=== PATIENT | male | born 2000 | race African-American/Black ===

== ENCOUNTER 2023-09-12 13:04 | Inpatient (IN) ==
--- NOTE | 2023-09-12 13:17 | ED Triage Note ---
Date of Service September 12, 2023 Provider in Triage Author: Kelsie Ferrell History of Present Illness This patient was briefly evaluated while in triage. An abbreviated physical exam was performed. This patient is a 22-year-old Male who presents to the ED for evaluation of allergic reaction. Developed hives, facial swelling, and difficulty breathing at 11a. Unknown trigger and does not have any known allergies. Took Benadryl. States he then had a syncopal episode while attempting to walk to his car. Reports history of similar episodes but this is lasting longer. Physical Exam Constitutional: alert and oriented x3. no acute distress. HEENT: normocephalic, atraumatic. normal conjunctiva.PERRLA. EOM's grossly intact. Respiratory: normal respiratory effort, no accessory muscle use. Cardiovascular: regular rate and rhythm. MSK: moves all 4 extremities spontaneously Psych:appropriate mood and affect. Initial orders for labs and / or imaging were placed and patient was placed in the waiting area until a bed is available. Please see further documentation for the full ED course.
[2023-09-12 14:16] LABS: Albumin Level 4.8 gm/dl (3.4-5.0); Bilirubin,Total 1.2 mg/dl (0.2-1.0); Calcium 10.1 mg/dl (8.6-10.3); Potassium 4.3 mmol/L (3.5-5.1)
[2023-09-12 14:22] LABS: Albumin Globulin Ratio 1.5 (0.9-2); BUN Creatinine Ratio 12.9 (10-20); Creatinine Clr Calc Pharmacy 63.7 ml/min; Est GFR (Non-African American) 72.4 ml/min; Globulin 3.1 gm/dl (2.5-4.0); Total Protein 7.9 gm/dl (6.0-8.3)
[2023-09-12 14:43] LABS: Basophils # (auto) 0.01 K/uL (0.00-0.20); Basophils % (auto) 0.2 %; Eosinophils # (auto) 0.03 K/uL (0.00-0.50); Eosinophils % (auto) 0.6 %; Hematocrit (blood only) 51.5 % (42.0-52.0); Hemoglobin 17.6 g/dl (14.0-18.0); Immature Granulocytes # (auto) 0.01 K/uL (0.01-0.20); Immature Granulocytes % (auto) 0.2 %; Lymphocytes # (auto) 1.92 K/uL (1.20-3.40); Mean Corpuscular Hgb Conc 34.2 g/dL (32.0-36.0); Mean Corpuscular Volume 87.9 fL (80.0-100.0); Mean Platelet Volume 11.4 fL (9.4-12.4); Monocytes # (auto) 0.27 K/uL (0.11-0.59); Monocytes % (auto) 5.5 %; Neutrophils # (auto) 2.68 K/uL (1.40-6.50); Neutrophils % (auto) 54.5 %; Platelet Count 279 K/uL (130-400); RDW Coefficient of Variation 12.2 % (11.5-14.5); RDW Standard Deviation 39.4 fL (36.4-46.3); Red Blood Count 5.86 M/uL (4.70-6.10); White Blood Count 4.92 K/ul (4.8-10.8)
[2023-09-12] MEDS ORDERED: SODIUM CHLORIDE 0.9% 1,000 ML IV ONE (14:44)
[2023-09-12 14:55] LABS: Magnesium 1.9 mg/dl (1.7-2.4)
[2023-09-12 15:16] LABS: Thyroid Stimulating Hormone 1.854 uIu/ml (0.300-4.500)
[2023-09-12 15:30] LABS: Troponin I High Sensitivity 62.8 pg/ml (0-20)
--- NOTE | 2023-09-12 16:03 | CT Scan Report ---
HEAD CT NONCONTRAST CT DOSE: 625.8 mGy.cm HISTORY: fall, head injury TECHNIQUE: Multiaxial CT images of the head were performed without the use of intravenous contrast. A utomated exposure control was utilized for this study. A dose lowering technique was utilized adheri ng to the principles of ALARA. Comparison: None. Findings: Partial opacification of the right sphenoid sinus. The remaining paranasal sinuses and mast oid air cells are clear. The calvarium and skull base are intact. The ventricles and sulci are within normal limits. There is no mass, hematoma, midline shift, or acute infarct. Impression: No acute intracranial abnormality. ACT 112: Negative or not required by law. Electronically signed by: Dayne Wei M.D. 09/12/2023 4:02 PM
--- NOTE | 2023-09-12 16:24 | Electrocardiogram Report ---
Test Reason : Blood Pressure : / mmHG Vent. Rate : 075 BPM Atrial Rate : 075 BPM P-R Int : 136 ms QRS Dur : 092 ms QT Int : 372 ms P-R-T Axes : 085 100 022 degrees QTc Int : 415 ms Normal sinus rhythm with sinus arrhythmia Right atrial enlargement Rightward axis Incomplete right bundle branch block Borderline ECG No previous ECGs available Confirmed by Abdelrahman Hernández ([id number]) on 09/12/2023 4:24:09 PM Referred By: Confirmed By:Abdelrahman Hernández
[2023-09-12 16:44] LABS: D Dimer 4870 ug/L FEU (0-500)
[2023-09-12] MEDS ORDERED: OPTIRAY 320 125ml IV ONE (17:15)
--- NOTE | 2023-09-12 17:34 | CT Scan Report ---
CT ANGIOGRAM OF THE CHEST CLINICAL HISTORY: Atypical chest pain. COMPARISON STUDY: No priors. TECHNIQUE: Following the IV administration of 118 cc of Optiray 320, CT angiogram of the chest was pe rformed from the upper abdomen to the thoracic inlet utilizing the pulmonary embolus protocol. Images are reviewed in the axial, sagittal, and coronal planes. 3-D MIPS images are created and assessed. I V contrast was administered without complication. A dose lowering technique was utilized adhering to the principles of ALARA. CT DOSE: 464.62 mGy.cm FINDINGS: Thyroid: Imaged portions of the thyroid gland are normal in size and attenuation. Thoracic aorta: The thoracic aorta is normal in caliber and demonstrates standard 3-vessel arch anato my. No dissection is seen. Pulmonary vasculature: The pulmonary trunk is normal in caliber. There are no filling defects identif ied in main, lobar, or segmental pulmonary branches to suggest pulmonary embolus. Heart: The heart is normal in size and without pericardial effusion. Lungs and pleural spaces: The lungs and pleural spaces are clear. The trachea and central airways are patent. Mediastinum: There is no mediastinal lymphadenopathy. Venessa: Clear. Axillae: There is no axillary lymphadenopathy. Upper abdomen: Partially visualized upper abdominal viscera is within normal limits. Skeletal structures: No lytic or blastic bony lesions are seen. IMPRESSION: 1. There is no evidence of pulmonary embolus in the main, lobar, or segmental pulmonary arteries. 2. The lungs are clear. ACT 112: Negative or not required by law. Electronically signed by: Kaushik Green M.D. 09/12/2023 5:32 PM
--- NOTE | 2023-09-12 18:37 | History & Physical Report ---
Date of Service September 12, 2023 Assessment & Plan (1) Syncope: Plan: This is a 22 y/o male with history of asthma, ADHD, and prior allergic reactions who presented to the ED today after a brief syncopal event. This event occurred while he was on his way to the car to come to the ED for evaluation of an allergic reaction. These episodic allergic reactions are a chronic issue since high school - no clear etiology identified. The hives and pruritus have since resolved. Work-up in the ED showed an elevated D-dimer so CTA chest PE protocol was ordered and was negative. Initial troponin was elevated, EKG abnormal including incomplete RBBB; no previous ekg for comparsim. Since etiology of syncope unclear and initial cardiac work-up was abnormal, pt was referred for admission. Additionally, on labs, pt was noted to have an elevated AST at 134 and Total Bili at 1.2. Need to evaluate for rhabdomyolysis in view of recent workouts at the gym and abnormal labs. - Admit to PCU - Trend troponin - Check ECHO due to unexplained syncope, abnl EKG - Consult cardiology for recommendations on any additional work-up - Check CK due to concern for rhabdo, repeat LFTs and CK in the AM - IVF hydration with LR at 125 cc/hr - Repeat EKG in the AM (2) Allergic reaction: Plan: - Will order prn Benadryl for any recurrent symptoms overnight - Add scheduled cetirizine 10 mg BID (3) Asthma: Plan: Chronic, stable - continue outpatient regimen of Flovent/albuterol prn (4) ADHD: Plan: Chronic, stable - continue Concerta Plan Pt seen and reviewed with collaborating physician, Dr. Franklin. Plan of care discussed and as outlined above. Code Status: Full code DVT Prophylaxis: SCDs Gladys Rivera PA-C History of Present Illness Chief Complaint: allergic reaction, passed out Primary Care Provider: NO PCP This is a 22 y/o male with history of asthma, ADHD, and prior allergic reactions who presented to the ED today after a syncopal event. Pt reports that he originally started with an allergic reaction today around 11 am today, which he describes as hives and pruritus - took Benadryl and tried to go to class but the hives were getting worse so his friend told him that he should be evaluated. He was walking to his friend's car to drive to the hospital when his vision became blurry, he developed dizziness then thinks that he passed out for around ten seconds. He did hit his head on a pole when he fell forward but did not fall to the ground. He has not had a syncopal event previously. He has had issues with sporadic allergic reactions since senior year of high school (currently a myra in college). He typically uses prn Benadryl with improvement in 30-60 minutes so today's reaction was unusual for him. He may go months without an allergic episode or have several in a short time. His last allergic episode was yesterday. No dysphagia with today's allergic reaction but he did have some shortness of breath that he attributes to his asthma - relief with inhaler, doesn't think related to the hives. He saw cadastral surveyor but didn't have full testin g and isn't sure why. No specific cause for these reactions have been identified. He notes working out at the gym yesterday but denies extreme muscle aches or fatigue, chest pain, dark urine. Allergies Allergy/AdvReac Type Severity Reaction Status Date / Time No Known Allergies Allergy Unverified 09/12/23 18:01 Home Medications Medication Instructions Recorded Confirmed Type albuterol sulfate 90 mcg/actuation 1 inh inhalation QID PRN 09/12/23 09/12/23 Hi story aerosol inhaler WHEEZING/sHORTNESS fluticasone propionate 110 2 puff inhalation BID 09/12/23 09/12/23 History mcg/actuation HFA aerosol inhaler methylphenidate HCl 27 mg 27 mg PO QAM 09/12/23 09/12/23 History tablet,extended release 24 hr (Concerta) Past Med/Surg History Medical History (Updated 09/12/23 @ 19:17 by Kathy Rivera PA-C) ADHD Asthma Surgical History (Updated 09/12/23 @ 19:15 by Kathy Rivera PA-C) No pertinent past surgical history Family History (Updated 09/12/23 @ 19:15 by Kathy Rivera PA-C) Other Family history non-contributory Social History Smoking Status: Never smoker Preferred Language: Slovenian Feels Safe at Home: Yes Review of Systems Review of Systems: All systems reviewed & are unremarkable except as noted in HPI & below Constitutional: no fever and no chills Eyes: as per Subjective / HPI Ear, Nose, Mouth, Throat: no sore throat and no dysphagia Respiratory: as per Subjective / HPI Cardiovascular: + lightheadedness and + syncope; no ches t pain, no palpitations and no edema Gastrointestinal: no abdominal pain, no nausea and no vomiting Musculoskeletal: no back pain and no neck pain Integumentary: + pruritus and + urticaria Neurologic: no seizure-like activity and no confusion Physical Exam Physical Exam: For details of the physical exam, please see the physician addendum. Results & Data Results & Data Vital Signs (Past 12 Hours) Vital Signs Temp Pulse Pulse Resp BP BP Pulse Ox 09/12/23 18:29 36.7 C 72 14 125/75 99 09/12/23 17:30 137/79 09/12/23 17:30 73 14 99 09/12/23 17:26 78 19 100 09/12/23 17:26 132/68 09/12/23 17:16 146/67 H 09/12/23 17:16 84 22 98 09/12/23 17:00 123/63 09/12/23 17:00 81 21 98 09/12/23 16:31 69 17 97 09/12/23 16:31 136/68 09/12/23 16:30 63 15 100 09/12/23 16:23 71 20 131/67 98 09/12/23 16:23 65 09/12/23 13:13 36.4 C L 87 19 105/77 94 09/12/23 13:05 99 O2 Del Method 09/12/23 18:29 Room Air 09/12/23 17:30 09/12/23 17:30 09/12/23 17:26 09/12/23 17:26 09/12/23 17:16 09/12/23 17:16 09/12/23 17:00 09/12/23 17:00 09/12/23 16:31 09/12/23 16:31 09/12/23 16:30 09/12/23 16:23 09/12/23 16:23 09/12/23 13:13 Room Air 09/12/23 13:05 Room Air Laboratory Results Laboratory Results - last 24 hr 09/12/23 09/12/23 13:48 Unknown WBC 4.92 RBC 5.86 Hgb 17.6 Hct 51.5 MCV 87.9 MCH 30.0 MCHC 34.2 RDW Std Deviation 39.4 RDW Coeff of Dylan 12.2 Plt Count 279 MPV 11.4 Immature Gran % (Auto) 0.2 Neut % (Auto) 54.5 Lymph % (Auto) 39.0 Trimble % (Auto) 5.5 Eos % (Auto) 0.6 Baso % (Auto) 0.2 Neut # (Auto) 2.68 Lymph # (Auto) 1.92 Trimble # (Auto) 0.27 Eos # (Auto) 0.03 Baso # (Auto) 0.01 Immature Gran # (Auto) 0.01 D-Dimer 4870 H* Sodium 139 Potassium 4.3 Chloride 103 Carbon Dioxide 30 Anion Gap 6 BUN 18 Creatinine 1.39 Est Cr Clr Drug Dosing 63.7 Est GFR ( Amer) 84.0 Est GFR (Non-Af Amer) 72.4 BUN/Creatinine Ratio 12.9 Glucose 123 H Calcium 10.1 Magnesium 1.9 Total Bilirubin 1.2 H AST 134 H ALT 40 Alkaline Phosphatase 57 Troponin I High Sens 62.8 H* Total Protein 7.9 Albumin 4.8 Globulin 3.1 Albumin/Globulin Ratio 1.5 TSH 1.854 Adenovirus (PCR) Not Detected B. pertussis DNA (PCR) Not Detected B.parapertussis DNA PCR Not Detected Lyme Disease IgG Ab Negative Lyme Disease IgM Ab Negative C. pneumoniae DNA (PCR) Not Detected Coronavirus OC43 (PCR) Not Detected Coronavirus HKU1 (PCR) Not Detected Coronavirus 229E (PCR) Not Detected SARS-CoV-2 (PCR) Not Detected Coronavirus NL63 (PCR) Not Detected Human Metapneumovir PCR Not Detected Influenza Type A (PCR) Not Detected Influenza Type B (PCR) Not Detected M. pneumoniae (PCR) Not Detected Parainfluenza 1 (PCR) Not Detected Parainfluenza 2 (PCR) Not Detected Parainfluenza 3 (PCR) Not Detected Parainfluenza 4 (PCR) Not Detected RSV (PCR) Not Detected Entero/Rhino (PCR) Not Detected Diagnostic Findings Head CT 09/12/23 14:[address] DOSE: 625.8 mGy.cm HISTORY: fall, head injury TECHNIQUE: Multiaxial CT images of the head were performed without the use of intravenous contrast. Automated exposure control was utilized for this study. A dose lowering technique was utilized adhering to the principles of ALARA. Comparison: None. Findings: Partial opacification of the right sphenoid sinus. The remaining paranasal sinuses and mastoid air cells are clear. The calvarium and skull base are intact. The ventricles and sulci are within normal limits. There is no mass, hematoma, midline shift, or acute infarct. Impression: No acute intracranial abnormality. ACT 112: Negative or not required by law. Electronically signed by: Dayne Wei M.D. 09/12/2023 4:02 PM Chest CTA 09/12/23 16:44 CT ANGIOGRAM OF THE CHEST CLINICAL HISTORY: Atypical chest pain. COMPARISON STUDY: No priors. TECHNIQUE: Following the IV administration of 118 cc of Optiray 320, CT angiogram of the chest was performed from the upper abdomen to the thoracic inlet utilizing the pulmonary embolus protocol. Images are reviewed in the axial, sagittal, and coronal planes. 3-D MIPS images are created and assessed. IV contrast was administered without complication. A dose lowering technique was utilized adhering to the principles of ALARA. CT DOSE: 464.62 mGy.cm FINDINGS: Thyroid: Imaged portions of the thyroid gland are normal in size and attenuation. Thoracic aorta: The thoracic aorta is normal in caliber and demonstrates standard 3-vessel arch anatomy. No dissection is seen. Pulmonary vasculature: The pulmonary trunk is normal in caliber. There are no filling defects identified in main, lobar, or segmental pulmonary branches to suggest pulmonary embolus. Heart: The heart is normal in size and without pericardial effusion. Lungs and pleural spaces: The lungs and pleural spaces are clear. The trachea and central airways are patent. Mediastinum: There is no mediastinal lymphadenopathy. Venessa: Clear. Axillae: There is no axillary lymphadenopathy. Upper abdomen: Partially visualized upper abdominal viscera is within normal limits. Skeletal structures: No lytic or blastic bony lesions are seen. IMPRESSION: 1. There is no evidence of pulmonary embolus in the main, lobar, or segmental pulmonary arteries. 2. The lungs are clear. ACT 112: Negative or not required by law. Electronically signed by: Kaushik Green M.D. 09/12/2023 5:32 PM Medications Administered Discontinued Medications Sodium Chloride (Nss) 1,000 mls @ 999 mls/hr IV .Q1H1M ONE Stop: 09/12/23 15:44 Last Infusion: 09/12/23 18:01 Dose: Infused Documented By: Admin: 09/12/23 14:52 Dose: 999 mls/hr Documented By: LINDY Ioversol (Optiray 320 125ml) 118 ml IV ONCE ONE Stop: 09/12/23 17:16 Last Admin: 09/12/23 17:16 Dose: 118 ml Documented By: ESEQUIEL Supervising Physician Co-Signing Physician Notes Patient is a 22-year-old male who presented to the hospital after a brief syncopal episode. He reports multiple episodes of allergic urticaria rash for several years. He reports that he he had a allergic reaction yesterday as well. It usually subsides with Benadryl. Patient reports 10 seconds of syncopal episode; denies falling down. He reported dizziness prior to the episode. He denies headache, visual changes, weakness/numbness of any body part, cough, shortness of breath, abdominal pain or urinary symptoms. He reports working out after a long break on Saturday/Saturday. On presentation to the ED, patient was normotensive, saturating well in room air. Lab work was remarkable for elevated D-dimer. CTA chest was done which ruled out PE. He was also found to have elevated AST, elevated high-sensitivity troponin On physical examination; Constitutional: Alert oriented x 3; not in distress. Respiratory: normal respiratory effort, lungs clear to auscultation, no wheeze, rales, rhonchi. Normal insp/exp effort, no accessory muscle use Cardiovascular: RRR, no murmur, no edema Vessels: no JVD or carotid bruit Chest: normal inspection of chest Abdomen: normal bowel sounds, soft, nontender, no hepatosplenomegaly Musculoskeletal: no cyanosis or clubbing, extremities motor strength 5/5 Skin: Multiple urticarial rashes all over the body. Neurologic: PERRL, EOMI, accommodation nl, no face palsy, no dysarthria CN's II- XI intact bilaterally and moves all extremities Psychiatric: A+Ox3, euthymic affect Assessment/plan Presyncopal episode Elevated high sensitive troponin EKG shows normal sinus rhythm with incomplete RBBB High sensitive troponin elevated Patient denies chest pain or shortness of breath. Obtain echocardiogram. Consult cardiology Obtain repeat high-sensitivity troponin Obtain CK total to rule out rhabdomyolysis Will start on fluid with 125 cc/h of LR salon professional overnight Cetirizine twice daily for allergic reaction Time spent evaluating patient, direct bedside care, chart review, placing orders, interpretation of diagnostic studies, discussion with consultants, patient, and family members, as well as other required patient management activities is 75 minutes Please note the above document was generated using voice recognition software. It may contain grammatical, syntax or spelling errors. Any formal questions or concerns about the content, text or information contained within the body of this dictation should be directly addressed to the provider for clarification (1) Syncope Syncope type: unspecified Qualified Code(s): R55 - Syncope and collapse (2) Allergic reaction Encounter type: initial encounter Qualified Code(s): T78.40XA - Allergy, unspecified, initial encounter (3) Asthma Asthma complication type: uncomplicated Asthma persistence: persistent Asthma severity: unspecified severity Qualified Code(s): J45.909 - Unspecified asthma, uncomplicated (4) ADHD Attention deficit-hyperactivity disorder type: unspecified Qualified Code(s): F90.9 - Attention-deficit hyperactivity disorder, unspecified type
[2023-09-12 18:51] LABS: Lyme Ab IgG w/WB Rflx Negative (Negative); Lyme Ab IgM w/WB Rflx Negative (Negative)
[2023-09-12] MEDS: LACTATED RINGER'S 1,000 ML IV SCH (18:54)
[2023-09-12 19:04] LABS: Adenovirus PCR Not Detected (NotDetected); Bordetella parapertussis PCR Not Detected (NotDetected); Bordetella pertussis PCR Not Detected (NotDetected); Chlamydia pneumoniae PCR Not Detected (NotDetected); Coronavirus 229E PCR Not Detected (NotDetected); Coronavirus CoV-2 (COVID19)PCR Not Detected (NotDetected); Coronavirus HKU1 PCR Not Detected (NotDetected); Coronavirus NL63 PCR Not Detected (NotDetected); Coronavirus OC43PCR Not Detected (NotDetected); Human Metapneumovirus PCR Not Detected (NotDetected); Influenza A PCR Not Detected (NotDetected); Influenza B PCR Not Detected (NotDetected); Mycoplasma pneumoniae PCR Not Detected (NotDetected); Parainfluenza Virus 1 PCR Not Detected (NotDetected); Parainfluenza Virus 2 PCR Not Detected (NotDetected); Parainfluenza Virus 3 PCR Not Detected (NotDetected); Parainfluenza Virus 4 PCR Not Detected (NotDetected); Respiratory Syncytial VirusPCR Not Detected (NotDetected); Rhinovirus/Enterovirus PCR Not Detected (NotDetected)
[2023-09-12 20:40] LABS: Troponin I High Sensitivity 134.9 pg/ml (0-20)
[2023-09-12] MEDS ORDERED: ALBUTEROL HFA 8 GM INHALER INH PRN (20:57)
[2023-09-12] MEDS ORDERED: diphenhydrAMINE Capsule 25 MG CAP PO PRN (20:57)
[2023-09-12] MEDS ORDERED: ACETAMINOPHEN 325 MG TAB PO PRN (20:57)
[2023-09-12] MEDS ORDERED: CETIRIZINE HCL 10 MG TABLET PO ONE (21:00)
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
[2023-09-13] MEDS: LACTATED RINGER'S 1,000 ML IV SCH ×5 (01:31→21:29)
[2023-09-13 07:39] LABS: Troponin I High Sensitivity 48.3 pg/ml (0-20)
[2023-09-13 08:05] LABS: Albumin Level 3.6 gm/dl (3.4-5.0); BUN Creatinine Ratio 16.2 (10-20); Bilirubin Direct 0.2 mg/dl (0-0.2); Bilirubin,Total 0.9 mg/dl (0.2-1.0); Calcium 8.5 mg/dl (8.6-10.3); Creatinine Clr Calc Pharmacy 111.7 ml/min; Est GFR (African American) 117.9 ml/min; Est GFR (Non-African American) 101.7 ml/min; Total Protein 5.9 gm/dl (6.0-8.3)
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
[2023-09-13] MEDS: FLUTICASONE FUROATE 200MCG 14 PUFFS/INHALER INH SCH (09:01)
[2023-09-13] MEDS: CETIRIZINE HCL 10 MG TABLET PO SCH ×2 (09:02→21:29)
[2023-09-13 09:14] LABS: Hematocrit (blood only) 37.6 % (42.0-52.0); Hemoglobin 12.3 g/dl (14.0-18.0); Mean Corpuscular Hemoglobin 29.6 pg (25.0-34.0); Mean Corpuscular Hgb Conc 32.7 g/dL (32.0-36.0); Mean Corpuscular Volume 90.4 fL (80.0-100.0); Mean Platelet Volume 11.6 fL (9.4-12.4); Platelet Count 186 K/uL (130-400); RDW Coefficient of Variation 12.2 % (11.5-14.5); RDW Standard Deviation 40.5 fL (36.4-46.3); Red Blood Count 4.16 M/uL (4.70-6.10); White Blood Count 7.73 K/ul (4.8-10.8)
[2023-09-13 09:17] LABS: Basophils # (auto) 0.01 K/uL (0.00-0.20); Basophils % (auto) 0.1 %; Eosinophils # (auto) 0.11 K/uL (0.00-0.50); Eosinophils % (auto) 1.4 %; Immature Granulocytes # (auto) 0.02 K/uL (0.01-0.20); Immature Granulocytes % (auto) 0.3 %; Lymphocytes # (auto) 3.05 K/uL (1.20-3.40); Lymphocytes % (auto) 39.5 %; Monocytes # (auto) 0.59 K/uL (0.11-0.59); Monocytes % (auto) 7.6 %; Neutrophils # (auto) 3.95 K/uL (1.40-6.50); Neutrophils % (auto) 51.1 %
--- NOTE | 2023-09-13 11:46 | Electrocardiogram Report ---
Test Reason : Blood Pressure : / mmHG Vent. Rate : 060 BPM Atrial Rate : 060 BPM P-R Int : 164 ms QRS Dur : 102 ms QT Int : 408 ms P-R-T Axes : 082 090 059 degrees QTc Int : 408 ms Normal sinus rhythm with sinus arrhythmia Minor ST elevation, most consistent with repolarization variant Rightward axis Borderline ECG When compared with ECG of 12-SEP-2023 13:34, Incomplete right bundle branch block is no longer Present Confirmed by Abdelrahman Hernández ([id number]) on 09/13/2023 11:46:05 AM Referred By: REFERRED SELF Confirmed By:Abdelrahman Hernández
--- NOTE | 2023-09-13 16:59 | Hospitalist Progress Note ---
Date of Service September 13, 2023 Assessment & Plan (1) Syncope: Plan: Patient is a 22 yr male with H/O Asthma, ADHD, and prior allergic reactions who presented to the ED today after a brief syncopal event. This event occurred while he was on his way to the car to come to the ED for evaluation of an allergic reaction. These episodic allergic reactions are a chronic issue since high school - no clear etiology identified. The hives and pruritus have since resolved. Work-up in the ED showed an elevated D-dimer so CTA chest PE protocol was ordered and was negative. Initial troponin was elevated, EKG abnormal including incomplete RBBB; no previous ekg for comparsim. Since etiology of syncope unclear and initial cardiac work-up was abnormal, pt was referred for admission. Additionally, on labs, pt was noted to have an elevated AST at 134 and Total Bili at 1.2. Need to evaluate for rhabdomyolysis in view of recent workouts at the gym and abnormal labs. Syncope Elevated troponin Unclear etiology. DD: Related to spontaneous urticarial reaction, Dehydration from intense exercise --CT head:No acute intracranial abnormality. --CTA: There is no evidence of pulmonary embolus in the main, lobar, or segmental pulmonary arteries. The lungs are clear. -- Monitor showed no rhythm issues Appreciate cardiology input Check drug screen Elevated CK levels Likely related to intense exercise Renal function within normal limits Continue aggressive IV fluids Monitor CK levels (2) Allergic reaction: Plan: Unclear etiology Improved with Benadryl, Zyrtec Advised to follow-up with cleaning laborer as outpatient (3) Asthma: Plan: Continue home inhalers No signs of exacerbation (4) ADHD: Plan: Chronic, stable - continue Concerta Plan DVT Px: SCDs Code Status: Full code Admission and Anticipated Discharge Date Admission Date: September 12, 2023 Subjective Patient is seen and examined at bedside Allergic urticarial rash almost resolved Denies any chest pain, dyspnea, dizziness, nausea, vomiting, abdominal pain No other complaints Review of Systems Review of Systems: All systems reviewed & are unremarkable except as noted in Subjective Physical Exam Physical Exam: Physical Exam: Vitals signs as noted above General Appearance:Moderately built and nourished, no apparent distress Head: normocephalic, Atraumatic Eyes: normal inspection, EOMI Neck: supple, Trachea midline Respiratory/Chest: Normal breath sounds, CTA, No accessory muscle use Cardiovascular: S1, S2, No murmur Abdomen/GI:Soft, Non tender, Bowel sounds present Extremities/Musculoskeletal:normal inspection, no edema Neurologic/Psych:AAOX3, grossly no focal neurological deficits Skin: normal color, warm Results & Data Results & Data Vital Signs (Past 12 Hours) Vital Signs Temp Pulse Resp BP Pulse Ox O2 Del Method 09/13/23 11:00 36.9 C 71 19 117/59 L 100 Room Air 09/13/23 07:31 36.5 C 64 18 120/81 99 Room Air Laboratory Results Short CBC 09/13/23 Range/Units 06:22 WBC 7.73 (4.8-10.8) K/ul Hgb 12.3 L D (14.0-18.0) g/dl Hct 37.6 L (42.0-52.0) % Plt Count 186 (130-400) K/uL BMP 09/13/23 06:22 Sodium 139 Potassium 4.0 Chloride 106 Carbon Dioxide 27 BUN 17 Creatinine 1.05 D Glucose 83 Calcium 8.5 L Cardiac Enzymes 09/12/23 09/13/23 Range/Units 19:57 06:22 Total Creatine Kinase 35738 H 50829 H (30-223) U/L Liver Function 09/13/23 Range/Units 06:22 Total Bilirubin 0.9 (0.2-1.0) mg/dl Direct Bilirubin 0.2 (0-0.2) mg/dl AST 124 H (13-39) U/L ALT 39 (7-52) U/L Alkaline Phosphatase 43 (34-104) U/L Albumin 3.6 (3.4-5.0) gm/dl (1) Syncope Syncope type: unspecified Qualified Code(s): R55 - Syncope and collapse (2) Allergic reaction Encounter type: initial encounter Qualified Code(s): T78.40XA - Allergy, unspecified, initial encounter (3) Asthma Asthma severity: unspecified severity Asthma persistence: persistent Asthma complication type: uncomplicated Qualified Code(s): J45.909 - Unspecified asthma, uncomplicated (4) ADHD Attention deficit-hyperactivity disorder type: unspecified Qualified Code(s): F90.9 - Attention-deficit hyperactivity disorder, unspecified type
[2023-09-13 19:01] LABS: Amphetamines+Metham, Urine Neg (Neg); Barbiturates, Urine Neg (Neg); Benzodiazepine, Urine Neg (Neg); Cocaine, Urine Neg (Neg); MDMA (Ecstacy), Urine Neg (Neg); Marijuana, Urine Neg (Neg); Methadone, Urine Neg (Neg); Opiate, Urine Neg (Neg); Phencyclidine, Urine Neg (Neg)
[2023-09-14] MEDS: LACTATED RINGER'S 1,000 ML IV SCH ×3 (02:01→11:41)
[2023-09-14 05:31] LABS: Hematocrit (blood only) 35.9 % (42.0-52.0); Hemoglobin 11.9 g/dl (14.0-18.0); Mean Corpuscular Hemoglobin 29.5 pg (25.0-34.0); Mean Corpuscular Hgb Conc 33.1 g/dL (32.0-36.0); Mean Corpuscular Volume 89.1 fL (80.0-100.0); Mean Platelet Volume 11.7 fL (9.4-12.4); Platelet Count 170 K/uL (130-400); RDW Coefficient of Variation 11.9 % (11.5-14.5); RDW Standard Deviation 39.3 fL (36.4-46.3); Red Blood Count 4.03 M/uL (4.70-6.10); White Blood Count 5.36 K/ul (4.8-10.8)
[2023-09-14 05:47] LABS: BUN Creatinine Ratio 11.8 (10-20); Calcium 8.7 mg/dl (8.6-10.3); Creatinine Clr Calc Pharmacy 126.2 ml/min; Est GFR (African American) 136.5 ml/min; Est GFR (Non-African American) 117.8 ml/min; Potassium 3.8 mmol/L (3.5-5.1)
[2023-09-14 06:03] LABS: Magnesium 1.8 mg/dl (1.7-2.4)
[2023-09-14] MEDS: FLUTICASONE FUROATE 200MCG 14 PUFFS/INHALER INH SCH (09:06)
[2023-09-14] MEDS: CETIRIZINE HCL 10 MG TABLET PO SCH (09:07)
--- NOTE | 2023-09-14 13:01 | Hospitalist Progress Note ---
Date of Service September 14, 2023 Assessment & Plan (1) Syncope: Plan: Patient is a 22 yr male with H/O Asthma, ADHD, and prior allergic reactions who presented to the ED today after a brief syncopal event. This event occurred while he was on his way to the car to come to the ED for evaluation of an allergic reaction. These episodic allergic reactions are a chronic issue since high school - no clear etiology identified. The hives and pruritus have since resolved. Work-up in the ED showed an elevated D-dimer so CTA chest PE protocol was ordered and was negative. Initial troponin was elevated, EKG abnormal including incomplete RBBB; no previous ekg for comparsim. Since etiology of syncope unclear and initial cardiac work-up was abnormal, pt was referred for admission. Additionally, on labs, pt was noted to have an elevated AST at 134 and Total Bili at 1.2. Need to evaluate for rhabdomyolysis in view of recent workouts at the gym and abnormal labs. Syncope Elevated troponin Unclear etiology. DD: Related to spontaneous urticarial reaction, Dehydration from intense exercise --CT head:No acute intracranial abnormality. --CTA: There is no evidence of pulmonary embolus in the main, lobar, or segmental pulmonary arteries. The lungs are clear. --Drug Screen: Negative -- Monitor showed no rhythm issues Appreciate cardiology input Advised to follow-up with cardiology for recurrence of symptoms as outpatient Elevated CK levels Likely related to intense exercise Renal function within normal limits Received aggressive IV fluids Advised to get repeat blood work as outpatient (2) Allergic reaction: Plan: Unclear etiology Improved with Benadryl, Zyrtec Resolved Advised to follow-up with project hire as outpatient (3) Asthma: Plan: Continue home inhalers No signs of exacerbation (4) ADHD: Plan: Chronic, stable - continue Concerta Plan DVT Px: SCDs Code Status: Full code Disposition Home Admission and Anticipated Discharge Date Admission Date: September 12, 2023 Subjective Patient is seen and examined at bedside Allergic urticarial rash resolved No new complaints Denies any chest pain, dyspnea, dizziness, nausea, vomiting, abdominal pain Eager to get discharged Updated patient's father over the phone Review of Systems Review of Systems: All systems reviewed & are unremarkable except as noted in Subjective Physical Exam Physical Exam: Physical Exam: Vitals signs as noted above General Appearance:Moderately built and nourished, no apparent distress Head: normocephalic, Atraumatic Eyes: normal inspection, EOMI Neck: supple, Trachea midline Respiratory/Chest: Normal breath sounds, CTA, No accessory muscle use Cardiovascular: S1, S2, No murmur Abdomen/GI:Soft, Non tender, Bowel sounds present Extremities/Musculoskeletal:normal inspection, no edema Neurologic/Psych:AAOX3, grossly no focal neurological deficits Skin: normal color, warm Results & Data Results & Data Vital Signs (Past 12 Hours) Vital Signs Temp Pulse Resp BP Pulse Ox O2 Del Method 09/14/23 07:15 36.6 C 65 17 102/48 L 96 Room Air 09/14/23 02:25 36.5 C 75 18 130/69 98 Room Air Laboratory Results Short CBC 09/14/23 Range/Units 04:42 WBC 5.36 (4.8-10.8) K/ul Hgb 11.9 L (14.0-18.0) g/dl Hct 35.9 L (42.0-52.0) % Plt Count 170 (130-400) K/uL BMP 09/14/23 04:42 Sodium 139 Potassium 3.8 Chloride 106 Carbon Dioxide 26 BUN 11 Creatinine 0.93 Glucose 98 Calcium 8.7 Cardiac Enzymes 09/14/23 Range/Units 04:42 Total Creatine Kinase 33811 H (30-223) U/L (1) Syncope Syncope type: unspecified Qualified Code(s): R55 - Syncope and collapse (2) Allergic reaction Encounter type: initial encounter Qualified Code(s): T78.40XA - Allergy, unspecified, initial encounter (3) Asthma Asthma severity: unspecified severity Asthma persistence: persistent Asthma complication type: uncomplicated Qualified Code(s): J45.909 - Unspecified asthma, uncomplicated (4) ADHD Attention deficit-hyperactivity disorder type: unspecified Qualified Code(s): F90.9 - Attention-deficit hyperactivity disorder, unspecified type
--- NOTE | 2023-09-14 13:09 | Discharge Summary ---
Date of Service September 14, 2023 Admission HPI Per Admitting Provider This is a 22 y/o male with history of asthma, ADHD, and prior allergic reactions who presented to the ED today after a syncopal event. Pt reports that he originally started with an allergic reaction today around 11 am today, which he describes as hives and pruritus - took Benadryl and tried to go to class but the hives were getting worse so his friend told him that he should be evaluated. He was walking to his friend's car to drive to the hospital when his vision became blurry, he developed dizziness then thinks that he passed out for around ten seconds. He did hit his head on a pole when he fell forward but did not fall to the ground. He has not had a syncopal event previously. He has had issues with sporadic allergic reactions since senior year of high school (currently a myra in college). He typically uses prn Benadryl with improvement in 30-60 minutes so today's reaction was unusual for him. He may go months without an allergic episode or have several in a short time. His last allergic episode was yesterday. No dysphagia with today's allergic reaction but he did have some shortness of breath that he attributes to his asthma - relief with inhaler, doesn't think related to the hives. He saw director of integrated marketing but didn't have full testing and isn't sure why. No specific cause for these reactions have been identified. He notes working out at the gym yesterday but denies extreme muscle aches or fatigue, chest pain, dark urine. Admission Exam Per Admitting Provider Constitutional: Alert oriented x 3; not in distress. Respiratory: normal respiratory effort, lungs clear to auscultation, no wheeze, rales, rhonchi. Normal insp/exp effort, no accessory muscle use Cardiovascular: RRR, no murmur, no edema Vessels: no JVD or carotid bruit Chest: normal inspection of chest Abdomen: normal bowel sounds, soft, nontender, no hepatosplenomegaly Musculoskeletal: no cyanosis or clubbing, extremities motor strength 5/5 Skin: Multiple urticarial rashes all over the body. Neurologic: PERRL, EOMI, accommodation nl, no face palsy, no dysarthria CN's II- XI intact bilaterally and moves all extremities Psychiatric: A+Ox3, euthymic affect Principal Diagnosis Syncope Allergic reaction Elevated CK levels Discharge Data Allergies Allergy/AdvReac Type Severity Reaction Status Date / Time No Known Allergies Allergy Unverified 09/12/23 18:01 Consultations 09/12/23 18:31 ED Decision to Admit Stat 09/12/23 18:42 Consult Cardiology Routine Procedures Performed Laboratory Results WBC 5.36 K/ul (4.8-10.8) 09/14/23 04:42 RBC 4.03 M/uL (4.70-6.10) L 09/14/23 04:42 Hgb 11.9 g/dl (14.0-18.0) L 09/14/23 04:42 Hct 35.9 % (42.0-52.0) L 09/14/23 04:42 MCV 89.1 fL (80.0-100.0) 09/14/23 04:42 MCH 29.5 pg (25.0-34.0) 09/14/23 04:42 MCHC 33.1 g/dL (32.0-36.0) 09/14/23 04:42 RDW Std Deviation 39.3 fL (36.4-46.3) 09/14/23 04:42 RDW Coeff of Dylan 11.9 % (11.5-14.5) 09/14/23 04:42 Plt Count 170 K/uL (130-400) 09/14/23 04:42 MPV 11.7 fL (9.4-12.4) 09/14/23 04:42 Immature Gran % (Auto) 0.3 % 09/13/23 06:22 Neut % (Auto) 51.1 % 09/13/23 06:22 Lymph % (Auto) 39.5 % 09/13/23 06:22 Harris % (Auto) 7.6 % 09/13/23 06:22 Eos % (Auto) 1.4 % 09/13/23 06:22 Baso % (Auto) 0.1 % 09/13/23 06:22 Neut # (Auto) 3.95 K/uL (1.40-6.50) 09/13/23 06:22 Lymph # (Auto) 3.05 K/uL (1.20-3.40) 09/13/23 06:22 Harris # (Auto) 0.59 K/uL (0.11-0.59) 09/13/23 06:22 Eos # (Auto) 0.11 K/uL (0.00-0.50) 09/13/23 06:22 Baso # (Auto) 0.01 K/uL (0.00-0.20) 09/13/23 06:22 Immature Gran # (Auto) 0.02 K/uL (0.01-0.20) 09/13/23 06:22 D-Dimer 4870 ug/L FEU (0-500) H* 09/12/23 13:48 Sodium 139 mmol/L (136-145) 09/14/23 04:42 Potassium 3.8 mmol/L (3.5-5.1) 09/14/23 04:42 Chloride 106 mmol/L (98-107) 09/14/23 04:42 Carbon Dioxide 26 mmol/L (21-32) 09/14/23 04:42 Anion Gap 7 (3-11) 09/14/23 04:42 BUN 11 mg/dl (6-23) 09/14/23 04:42 Creatinine 0.93 mg/dl (0.6-1.4) 09/14/23 04:42 Est Cr Clr Drug Dosing 126.2 ml/min 09/14/23 04:42 Est GFR ( Amer) 136.5 ml/min 09/14/23 04:42 Est GFR (Non-Af Amer) 117.8 ml/min 09/14/23 04:42 BUN/Creatinine Ratio 11.8 (10-20) 09/14/23 04:42 Glucose 98 mg/dl (70-99(Fasting)) 09/14/23 04:42 Calcium 8.7 mg/dl (8.6-10.3) 09/14/23 04:42 Magnesium 1.8 mg/dl (1.7-2.4) 09/14/23 04:42 Total Bilirubin 0.9 mg/dl (0.2-1.0) 09/13/23 06:22 Direct Bilirubin 0.2 mg/dl (0-0.2) 09/13/23 06:22 AST 124 U/L (13-39) H 09/13/23 06:22 ALT 39 U/L (7-52) 09/13/23 06:22 Alkaline Phosphatase 43 U/L (34-104) 09/13/23 06:22 Total Creatine Kinase 11971 U/L (30-223) H 09/14/23 04:42 Troponin I High Sens 48.3 pg/ml (0-20) H D 09/13/23 06:22 Total Protein 5.9 gm/dl (6.0-8.3) L D 09/13/23 06:22 Albumin 3.6 gm/dl (3.4-5.0) 09/13/23 06:22 Globulin 3.1 gm/dl (2.5-4.0) 09/12/23 13:48 Albumin/Globulin Ratio 1.5 (0.9-2) 09/12/23 13:48 TSH 1.854 uIu/ml (0.300-4.500) 09/12/23 13:48 Urine Opiates Screen Neg (Neg) 09/13/23 17:55 Ur Methadone, Qual Neg (Neg) 09/13/23 17:55 Urine Barbiturates Neg (Neg) 09/13/23 17:55 Ur Phencyclidine (PCP) Neg (Neg) 09/13/23 17:55 U Amphetamin/Meth Scrn Neg (Neg) 09/13/23 17:55 MDMA (Ecstasy) Screen Neg (Neg) 09/13/23 17:55 U Benzodiazepines Scrn Neg (Neg) 09/13/23 17:55 Ur Cocaine Metabolite Neg (Neg) 09/13/23 17:55 U Marijuana (THC) Screen Neg (Neg) 09/13/23 17:55 Adenovirus (PCR) Not Detected (NotDetected) 09/12/23 Unknown B. pertussis DNA (PCR) Not Detected (NotDetected) 09/12/23 Unknown B.parapertussis DNA PCR Not Detected (NotDetected) 09/12/23 Unknown Lyme Disease IgG Ab Negative (Negative) 09/12/23 13:48 Lyme Disease IgM Ab Negative (Negative) 09/12/23 13:48 C. pneumoniae DNA (PCR) Not Detected (NotDetected) 09/12/23 Unknown Coronavirus OC43 (PCR) Not Detected (NotDetected) 09/12/23 Unknown Coronavirus HKU1 (PCR) Not Detected (NotDetected) 09/12/23 Unknown Coronavirus 229E (PCR) Not Detected (NotDetected) 09/12/23 Unknown SARS-CoV-2 (PCR) Not Detected (NotDetected) 09/12/23 Unknown Coronavirus NL63 (PCR) Not Detected (NotDetected) 09/12/23 Unknown Human Metapneumovir PCR Not Detected (NotDetected) 09/12/23 Unknown Influenza Type A (PCR) Not Detected (NotDetected) 09/12/23 Unknown Influenza Type B (PCR) Not Detected (NotDetected) 09/12/23 Unknown M. pneumoniae (PCR) Not Detected (NotDetected) 09/12/23 Unknown Parainfluenza 1 (PCR) Not Detected (NotDetected) 09/12/23 Unknown Parainfluenza 2 (PCR) Not Detected (NotDetected) 09/12/23 Unknown Parainfluenza 3 (PCR) Not Detected (NotDetected) 09/12/23 Unknown Parainfluenza 4 (PCR) Not Detected (NotDetected) 09/12/23 Unknown RSV (PCR) Not Detected (NotDetected) 09/12/23 Unknown Entero/Rhino (PCR) Not Detected (NotDetected) 09/12/[address] 09/12/23 14:[address] DOSE: 625.8 mGy.cm HISTORY: fall, head injury TECHNIQUE: Multiaxial CT images of the head were performed without the use of intravenous contrast. Automated exposure control was utilized for this study. A dose lowering technique was utilized adhering to the principles of ALARA. Comparison: None. Findings: Partial opacification of the right sphenoid sinus. The remaining paranasal sinuses and mastoid air cells are clear. The calvarium and skull base are intact. The ventricles and sulci are within normal limits. There is no mass, hematoma, midline shift, or acute infarct. Impression: No acute intracranial abnormality. ACT 112: Negative or not required by law. Electronically signed by: Dayne Wei M.D. 09/12/2023 4:02 PM Chest CTA 09/12/23 16:44 CT ANGIOGRAM OF THE CHEST CLINICAL HISTORY: Atypical chest pain. COMPARISON STUDY: No priors. TECHNIQUE: Following the IV administration of 118 cc of Optiray 320, CT angiogram of the chest was performed from the upper abdomen to the thoracic inlet utilizing the pulmonary embolus protocol. Images are reviewed in the axial, sagittal, and coronal planes. 3-D MIPS images are created and assessed. IV contrast was administered without complication. A dose lowering technique was utilized adhering to the principles of ALARA. CT DOSE: 464.62 mGy.cm FINDINGS: Thyroid: Imaged portions of the thyroid gland are normal in size and attenuation. Thoracic aorta: The thoracic aorta is normal in caliber and demonstrates standard 3-vessel arch anatomy. No dissection is seen. Pulmonary vasculature: The pulmonary trunk is normal in caliber. There are no filling defects identified in main, lobar, or segmental pulmonary branches to suggest pulmonary embolus. Heart: The heart is normal in size and without pericardial effusion. Lungs and pleural spaces: The lungs and pleural spaces are clear. The trachea and central airways are patent. Mediastinum: There is no mediastinal lymphadenopathy. Venessa: Clear. Axillae: There is no axillary lymphadenopathy. Upper abdomen: Partially visualized upper abdominal viscera is within normal limits. Skeletal structures: No lytic or blastic bony lesions are seen. IMPRESSION: 1. There is no evidence of pulmonary embolus in the main, lobar, or segmental pulmonary arteries. 2. The lungs are clear. ACT 112: Negative or not required by law. Electronically signed by: Kaushik Green M.D. 09/12/2023 5:32 PM Ordered Studies 09/12/23 14:44 CT head/brain wo con Stat 09/12/23 16:44 CT angio chest PE protocol Stat Hospital Course (1) Syncope: Patient is a 22 yr male with H/O Asthma, ADHD, and prior allergic reactions who presented to the ED today after a brief syncopal event. This event occurred while he was on his way to the car to come to the ED for evaluation of an allergic reaction. These episodic allergic reactions are a chronic issue since high school - no clear etiology identified. The hives and pruritus have since resolved. Work-up in the ED showed an elevated D-dimer so CTA chest PE protocol was ordered and was negative. Initial troponin was elevated, EKG abnormal including incomplete RBBB; no previous ekg for comparsim. Since etiology of syncope unclear and initial cardiac work-up was abnormal, pt was referred for admission. Additionally, on labs, pt was noted to have an elevated AST at 134 and Total Bili at 1.2. Need to evaluate for rhabdomyolysis in view of recent workouts at the gym and abnormal labs. Syncope Elevated troponin Unclear etiology. DD: Related to spontaneous urticarial reaction, Dehydration from intense exercise --CT head:No acute intracranial abnormality. --CTA: There is no evidence of pulmonary embolus in the main, lobar, or segmental pulmonary arteries. The lungs are clear. --Drug Screen: Negative -- Monitor showed no rhythm issues Appreciate cardiology input Advised to follow-up with cardiology for recurrence of symptoms as outpatient Elevated CK levels Likely related to intense exercise Renal function within normal limits Received aggressive IV fluids Advised to get repeat blood work as outpatient (2) Allergic reaction: Unclear etiology Improved with Benadryl, Zyrtec Resolved Advised to follow-up with director of integrated marketing as outpatient (3) Asthma: Continue home inhalers No signs of exacerbation (4) ADHD: Chronic, stable - continue Concerta Plan DVT Px: SCDs Code Status: Full code Disposition Home Total Time Total Time Spent Total Time Spent (In Minutes): 56 minutes Discharge Plan Discharge Items Patient Disposition: Home - Self-Care Reason For Visit: SYNCOPE Discharge Diagnosis: Syncope Allergic reaction Elevated CK levels Activity: Per Instructions section Exercise/Sports: Wait until after follow-up appointment Non-emergency contact: Primary Care Provider Call non-emergency contact if: you have any medication questions, your symptoms worsen, your pain is concerning for you and you have a fever Follow-up/Referrals: PCP,NO [Primary Care Provider] - Diet: Regular Addtl Attending Provider Instructions: Follow-up with your primary care physician in 1 week as advised Consider following with your ballaster if recurrence of syncopal episodes Follow-up with your drug safety specialist for further evaluation of recurrent allergic reactions as advised -- Obtain blood work: Basic metabolic panel, creatinine kinase levels in 1 week and follow-up with a physician for further recommendations -- Avoid exercise until follow-up with your primary care physician. Drink plenty of water as advised. Seek immediate medical attention if your symptoms reoccur or worsen Please take all medications as instructed on discharge list below. Please call if you have any questions or problems. You can reach a [facility] hospitalist on duty at [facility] 24 hours a day by calling [phone] Pending Studies at Discharge: No Stand-Alone Forms: [facility], Smoking Cessation Medications and DC Order Prescriptions: New diphenhydramine HCl [Benadryl] 25 mg Capsule 25 mg PO Q8H PRN (Reason: allergy symptoms) Qty: 10 0RF Continued albuterol sulfate 90 mcg/actuation Hfa Aerosol Inhaler 1 inh INHALATION QID PRN (Reason: WHEEZING/sHORTNESS) fluticasone propionate [Flovent] 110 mcg/actuation Hfa Aerosol Inhaler 2 puff INHALATION BID methylphenidate HCl [Concerta] 27 mg Tablet Extended Release 24hr 27 mg PO QAM Discharge Orders: Discharge Order (Routine); Ordered 09/14/23 Ordered By: Zeke Fuentes Admission Data Admit Date/Time: 09/12/23 18:40 Attending Provider: Zeke Fuentes Admit Provider: Rock Franklin Primary Care Provider: PCP,NO Other Providers: Rock Franklin; Dada Erickson
== END 2023-09-14 14:07 | disposition home or self-care (01) | DRG 312 ==
LOC: ED 13:04 → SUATTDRO 18:40 → EDINP 18:40 → 4W 20:57